=== PATIENT | male | born 1970 | race Caucasian/White ===

== ENCOUNTER 2019-07-13 13:13 | Emergency (ER) | payer OTHER ==
[~2019-07-13] VITALS: Ht 175.3 cm; Wt 99.8 kg
[2019-07-13 13:33] VITALS: BP 127/79
[2019-07-13] MEDS ORDERED: LIDOCAINE 1% HCL (LOCAL ANESTH.) INJ 20ML MDV IJ ONE (14:30)
[2019-07-13] MEDS ORDERED: ceFAZolin IM 1GM/2.5ML STERILE WATER IM ONE (15:15)
[2019-07-13] MEDS ORDERED: IBUPROFEN 800 MG TAB PO ONE (15:15)
== END 2019-07-13 15:39 | disposition home or self-care (01) ==
LOC: ER 13:13
DX: S62.305A Unspecified fracture of fourth metacarpal bone, left hand, initial encounter for closed fracture (principal); S61.412A Laceration without foreign body of left hand, initial encounter; W26.8XXA Contact with other sharp object(s), not elsewhere classified, initial encounter; Y93.89 Activity, other specified; Y92.89 Other specified places as the place of occurrence of the external cause; Y99.0 Civilian activity done for income or pay
CPT/HCPCS: 12001; 73130; 96372; 99283; J0690; J2001